=== PATIENT | male | born 1985 | race Two or more races ===

== ENCOUNTER 2025-05-17 08:14 | Outpatient (CLI) | payer OTHER ==
[2025-05-17 08:53] LABS: BASO % 0.8 % (0.1-1.2); EOS # 0.13 (0.04-0.54); EOS % 2.0 % (0.7-7.0); LYMPH # 2.34 (1.18-3.74); LYMPH % 35.7 % (19.3-53.1); MEAN PLATELET VOLUME 11.60 fl (9.4-12.4); MONO # 0.48 (0.24-0.82); MONO % 7.3 % (4.7-12.5); NEUT # 3.55 (1.56-6.13); NEUT % 54.0 % (34.0-71.1); RED CELL DISTRIBUTION WIDTH 12.4 % (11.6-14.4)
[2025-05-17 10:22] LABS: ALT/SGPT 22.0 U/L (12-78); AST/SGOT 10.0 U/L (15-37); BILIRUBIN TOTAL 0.91 mg/dL (0.3-1.2); BUN CREA RATIO 18.0 (7.0-25.0); CREATININE SERUM 0.99 mg/dL (0.70-1.30); GFR 85.06; GLOBULINA 3.1 G/DL (2.4-3.5); GLUCOSE FASTING 90.0 mg/dL (65-100); OSMOLALITY SERUM 285.0 MOSM/KG (275-295)
== END 2025-05-17 08:18 | disposition home or self-care (01) ==
LOC: LAB 08:14
PROVIDERS: ATTEND Internal Medicine
DX: K62.5 Hemorrhage of anus and rectum (principal)

== ENCOUNTER → 2025-06-21 08:05 | Outpatient (CLI) | payer OTHER ==
[2025-06-21 09:48] LABS: BASO % 0.7 % (0.1-1.2); EOS # 0.12 (0.04-0.54); EOS % 2.0 % (0.7-7.0); LYMPH # 2.46 (1.18-3.74); LYMPH % 40.9 % (19.3-53.1); MEAN PLATELET VOLUME 10.90 fl (9.4-12.4); MONO # 0.45 (0.24-0.82); MONO % 7.5 % (4.7-12.5); NEUT # 2.94 (1.56-6.13); NEUT % 48.7 % (34.0-71.1); RED CELL DISTRIBUTION WIDTH 12.3 % (11.6-14.4)
[2025-06-21 10:10] LABS: URINE APPEARANCE Clear; URINE BILIRRUBIN Negative (NEGATIVE); URINE BLOOD Negative; URINE COLOR Yellow; URINE GLUCOSE Negative (NEGATIVE); URINE KETONE Negative (NEGATIVE); URINE LEUKOCYTE Negative; URINE NITRATE Negative; URINE PROTEIN Negative (NEGATIVE); URINE UROBILINOGEN 0.2 E.U./dl
[2025-06-21 10:17] LABS: URINE BACTERIA 5.9 uL (0.0-1933)
[2025-06-21 10:18] LABS: URINE EPITHELIAL CELLS 0.1 uL (0.0-38.8); URINE RBC 0.1 uL (0.0-20.8); URINE WBC 1.0 uL (0.0-23.2)
[2025-06-21 10:19] LABS: URINE CAST 0.00 uL (0.0-1.40)
[2025-06-21 11:07] LABS: ALT/SGPT 32 U/L (12-78); AST/SGOT 14 U/L (15-37); BILIRUBIN TOTAL 0.41 mg/dL (0.3-1.2); BUN CREA RATIO 17 (7.0-25.0); CHOL HDL RATIO 3.4 (0-5.0); CREATININE SERUM 0.87 mg/dL (0.70-1.30); FE 63.0 ug/dl (65-175); GFR 98.74; GLOBULINA 2.7 G/DL (2.4-3.5); GLUCOSE FASTING 96 mg/dL (65-100); HDL 57 mg/dl (40-60); LDL 119 mg/dl (0-130); OSMOLALITY SERUM 284 MOSM/KG (275-295); T4 FREE 1.00 NG/ML (0.76-1.46); T4 TOTAL 8.34 UG/DL (4.5-12.1); TSH 3.310 uIU/mL (0.358-3.74); VLDL 16 (0-39)
[2025-06-21 13:10] LABS: RF NEGATIVE (NEGATIVE)
[2025-06-21 16:19] LABS: T3 TOTAL 1.41 ng/ml (0.846-2.02); VITAMIN D3 25 HYDROXY 38.37 ng/ml (30-120)
[2025-06-22 05:07] LABS: HSV I IGG TYPE SPECIFIC Non Reactive (Non Reactive); hav igm Negative (Negative); hep b c Negative (Negative); hep b s ag Negative (Negative)
[2025-06-22 11:20] LABS: FOLIC ACID 5.74 ng/ml (4.78-20)
[2025-06-22 15:08] LABS: CYCLIC CITRULLINE PEPTIDE 16 units (0-19)
[2025-06-22 21:07] LABS: chla t Negative (Negative); neiss Negative (Negative)
== END | disposition home or self-care (01) ==
LOC: LAB 08:05
DX: R94.6 Abnormal results of thyroid function studies (principal); Z12.11 Encounter for screening for malignant neoplasm of colon; Z13.220 Encounter for screening for lipoid disorders; Z13.228 Encounter for screening for other metabolic disorders; R73.01 Impaired fasting glucose; D64.9 Anemia, unspecified; M06.4 Inflammatory polyarthropathy; Z11.3 Encounter for screening for infections with a predominantly sexual mode of transmission

== ENCOUNTER 2025-06-21 09:41 | Outpatient (CLI) | payer OTHER | END 2025-06-21 09:45 | disposition home or self-care (01) | LOC: RAD 09:41 | PROVIDERS: ATTEND General Practice | DX: M54.2 Cervicalgia (principal); M15.9 Polyosteoarthritis, unspecified; M54.50 Low back pain, unspecified ==